=== PATIENT | female | born 1990 | race Caucasian/White ===

== ENCOUNTER 2020-09-13 19:25 | Emergency (ER) | payer OTHER, MEDICAID, SELFPAY ==
[2020-09-13 19:47] VITALS: BP 164/112; PULSE 84; RESP 18; TEMP 36.5; O2SAT 98; BMI 36.9
[2020-09-13 20:31] LABS: Add Manual Diff / Slide Review NO; Basophils Absolute Auto 100 /uL (0-100); Basophils Percent Auto 0.7 % (0-2); Eosinophils Absolute Auto 100 /uL (0-450); Eosinophils Percent Auto 0.4 % (2-4); Hemoglobin 14.9 g/dL (12.0-16.0); Lymphocytes Absolute Auto 2000 /uL (1100-4500); Lymphocytes Percent Auto 16.3 % (25-40); Mean Corpuscular Hemoglobin 27.9 PG (26-34); Mean Corpuscular Volume 84.6 fL (80-100); Monocytes Absolute Auto 400 /uL (0-900); Monocytes Percent Auto 3.3 % (3-14); Neutrophils Absolute Auto 9900 /uL (1500-7000); Neutrophils Percent Auto 79.3 % (50-75); Platelet Count 280 X10^3/uL (150-400); Red Blood Cell Count 5.32 X10^6/uL (4.0-5.2); Red Cell Distribution Width 14.2 % (11.6-14.8); White Blood Cell Count 12.5 X10^3/uL (4.5-11.0)
[2020-09-13 20:39] LABS: Prothrombin Time 11.5 SECONDS (10.1-12.7)
[2020-09-13 20:41] LABS: PTT Partial Thromboplastin Tim 34 SECONDS (26.4-36.2)
[2020-09-13 20:43] LABS: Alanine Aminotransferase 36 IU/L (<35); Albumin 4.6 g/dL (3.5-5.0); Albumin Globulin Ratio 1.1 (1.0-2.8); Alkaline Phosphatase 106 U/L (38-126); Aspartate Aminotransferase 32 IU/L (14-36); BUN Creatinine Ratio 11.8 (6-22); Bilirubin Total 0.5 mg/dL (0.2-1.3); Blood Urea Nitrogen 8 mg/dL (7-17); Calcium 9.7 mg/dL (8.4-10.2); Carbon Dioxide 27 mmol/L (22-32); Chloride 105 mmol/L (98-107); Estimated Glomerular Filt Rate > 60.0 mL/min (>60); Globulin 4.1 g/dL (1.7-4.1); Glucose 110 mg/dL (70-100); HEMOLYSIS 19 (0-50); Lipase 140 U/L (23-300); Sodium 138 mmol/L (137-145); Total Protein 8.7 g/dL (6.3-8.2)
[2020-09-13] MEDS: ONDANSETRON 4 MG/2 ML INJ IV (22:06)
[2020-09-13] MEDS: SODIUM CHLORIDE 0.9% 1,000 ML 1000 ML IV ×2 (22:07→23:24)
[2020-09-13 22:42] VITALS: BP 125/67; PULSE 63; RESP 14; O2SAT 98
[2020-09-13 23:00] VITALS: BP 117/62; PULSE 65; RESP 21; O2SAT 98
--- NOTE | 2020-09-13 23:00 | ED_ITS ---
HPI - General Adult General Chief complaint: Dizziness Stated complaint: LIGHTHEADED VOMITING Time Seen by Provider: 09/13/20 23:00 Source: patient Mode of arrival: Ambulatory Limitations: no limitations History of Present Illness HPI narrative: 30-year-old woman history of 4 days of vomiting and diarrhea. She does have a history of ?chronic stomach stuff? that seems to have responded nicely to Prilosec 20 mg of venlafaxine 125 mg. She is were another the venlafaxine and has a refill available but has not taken it for the past 48 hours. She describes no fevers or chills. There is no blood in either the denise sis or the stool. Moderate abdominal pain secondary to the vomiting with cramping associated with diarrhea. No cough, chest pain, pharyngitis. Related Data Allergies Allergy/AdvReac Type Severity Reaction Status Date / Time naproxen AdvReac Verified 09/13/20 19:52 Review of Systems Review of Systems Narrative: Remainder of review of systems including constitutional, ENT, cardiovascular, respiratory, GI, , musculoskeletal, skin, neurologic and psychiatric systems reviewed and are unremarkable except as noted in HPI. Patient History Social History Smoking Status: Never smoker Smoking Status: Never smoker alcohol intake frequency: a few times a month Substance Use Type: marijuana Exam Narrative Exam Narrative: General: Healthy appearing, in no acute distress. Able to give a complete and coherent history. Well-nourished well-developed HEENT: Moist mucous membranes, normal sclera with reactive pupils, Neck: , supple Respiratory: Lungs are clear to auscultation, no wheezing no rales no rhonchi. Full and symmetrical air movement Cardiac: Regular rate and rhythm no murmurs no bruits Abdomen: Soft nontender good bowel tones, no flank pain Skin: Warm and dry, no rashes Neurologic: Grossly neurologically intact with no obvious asymmetries or abnormalities Extremities: No trauma, well perfused Psych: Cooperative, appropriate insight and affect Initial Vital Signs Initial Vital Signs: Vital Signs Temperature 97.7 F 09/13/20 19:47 Pulse Rate 84 09/13/20 19:47 Respiratory Rate 18 09/13/20 19:47 Blood Pressure 164/112 H 09/13/20 19:47 Pulse Oximetry 98 09/13/20 19:47 Course Orders Ordered: ED Orders 09/13/20 20:25 Complete Blood Count AUTO DIFF Stat Comprehensive Metabolic Panel Stat Lipase Stat Partial Thromboplastin Time Stat Prothrombin Time INR Stat 09/13/20 21:27 COVID19 Stat 09/13/20 21:54 EKG-12 Lead Stat Discontinued Medications Sodium Chloride (Normal Saline 0.9%) 1,000 mls @ 1,000 mls/hr IV BOLUS ONE Stop: 09/13/20 23:04 Last Infusion: 09/13/20 23:15 Dose: 0 mls/hr Documented by: Admin: 09/13/20 22:07 Dose: 1,000 mls/hr Documented by: SHIVA Sodium Chloride (Normal Saline 0.9%) 1,000 mls @ 1,000 mls/hr IV BOLUS ONE Stop: 09/14/20 00:00 Last Infusion: 09/14/20 00:39 Dose: 0 mls/hr Documented by: Admin: 09/13/20 23:24 Dose: 1,000 mls/hr Documented by: NATE Ondansetron HCl (Zofran) 4 mg IV NOW ONE Stop: 09/13/20 22:01 Last Admin: 09/13/20 22:06 Dose: 4 mg Documented by: SHIVA Ondansetron HCl (Zofran Odt Prepack) 1 bottle MISC SEEINSTR ONE Stop: 09/14/20 02:01 Last Admin: 09/14/20 02:02 Dose: 1 bottle Documented by: ISRA Vital Signs Vital signs: Vital Signs - 8 hr 09/13/20 22:42 09/13/20 23:00 09/13/20 23:30 Pulse Rate 63 65 73 Respiratory Rate 14 21 23 Blood Pressure 125/67 117/62 121/75 Pulse Oximetry 98 98 98 09/13/20 23:58 09/14/20 00:00 09/14/20 00:30 Pulse Rate 77 66 78 Respiratory Rate 24 14 22 Blood Pressure 118/76 Pulse Oximetry 98 100 100 09/14/20 01:00 09/14/20 01:01 Pulse Rate 71 83 Respiratory Rate 16 19 Blood Pressure 109/58 L Pulse Oximetry 99 98 Medical Decision Making Medical Records Medical records reviewed: Yes I reviewed the patient's medical records. Lab Data Lab results reviewed: Yes I reviewed the patient's lab results. Result diagrams: 09/13/20 20:25 09/13/20 20:25 Labs: Lab Results 09/13/20 09/13/20 09/13/20 Range/Units 20:25 20:25 20:25 WBC 12.5 H (4.5-11.0) X10^3/uL RBC 5.32 H (4.0-5.2) X10^6/uL Hgb 14.9 (12.0-16.0) g/dL Hct 45.0 (36-46) % MCV 84.6 (80-100) fL MCH 27.9 (26-34) PG MCHC 33.0 (30-36) % RDW 14.2 (11.6-14.8) % Plt Count 280 (150-400) X10^3/uL Neut % (Auto) 79.3 H (50-75) % Lymph % (Auto) 16.3 L (25-40) % [place] % (Auto) 3.3 (3-14) % Eos % (Auto) 0.4 L (2-4) % Baso % (Auto) 0.7 (0-2) % Neut # (Auto) 9900 H (6382-6724) /uL Lymph # (Auto) 2000 (7891-2031) /uL [place] # (Auto) 400 (0-900) /uL Eos # (Auto) 100 (0-450) /uL Baso # (Auto) 100 (0-100) /uL PT 11.5 (10.1-12.7) SECONDS INR 1.0 (0.9-1.3) APTT 34 (26.4-36.2) SECONDS Sodium 138 (137-145) mmol/L Potassium 4.0 (3.4-5.1) mmol/L Chloride 105 (98-107) mmol/L Carbon Dioxide 27 (22-32) mmol/L BUN 8 (7-17) mg/dL Creatinine 0.68 (0.52-1.04) mg/dL Estimated GFR > 60.0 (>60) mL/min BUN/Creatinine Ratio 11.8 (6-22) Glucose 110 H (70-100) mg/dL Calcium 9.7 (8.4-10.2) mg/dL Total Bilirubin 0.5 (0.2-1.3) mg/dL AST 32 (14-36) IU/L ALT 36 H (<35) IU/L Alkaline Phosphatase 106 (38-126) U/L Total Protein 8.7 H (6.3-8.2) g/dL Albumin 4.6 (3.5-5.0) g/dL Globulin 4.1 (1.7-4.1) g/dL Albumin/Globulin Ratio 1.1 (1.0-2.8) Lipase 140 (23-300) U/L COVID-19 PCR (Negative) 09/13/20 Range/Units 21:27 WBC (4.5-11.0) X10^3/uL RBC (4.0-5.2) X10^6/uL Hgb (12.0-16.0) g/dL Hct (36-46) % MCV (80-100) fL MCH (26-34) PG MCHC (30-36) % RDW (11.6-14.8) % Plt Count (150-400) X10^3/uL Neut % (Auto) (50-75) % Lymph % (Auto) (25-40) % [place] % (Auto) (3-14) % Eos % (Auto) (2-4) % Baso % (Auto) (0-2) % Neut # (Auto) (6633-6415) /uL Lymph # (Auto) (9590-1398) /uL [place] # (Auto) (0-900) /uL Eos # (Auto) (0-450) /uL Baso # (Auto) (0-100) /uL PT (10.1-12.7) SECONDS INR (0.9-1.3) APTT (26.4-36.2) SECONDS Sodium (137-145) mmol/L Potassium (3.4-5.1) mmol/L Chloride (98-107) mmol/L Carbon Dioxide (22-32) mmol/L BUN (7-17) mg/dL Creatinine (0.52-1.04) mg/dL Estimated GFR (>60) mL/min BUN/Creatinine Ratio (6-22) Glucose (70-100) mg/dL Calcium (8.4-10.2) mg/dL Total Bilirubin (0.2-1.3) mg/dL AST (14-36) IU/L ALT (<35) IU/L Alkaline Phosphatase (38-126) U/L Total Protein (6.3-8.2) g/dL Albumin (3.5-5.0) g/dL Globulin (1.7-4.1) g/dL Albumin/Globulin Ratio (1.0-2.8) Lipase (23-300) U/L COVID-19 PCR Negative (Negative) Point of Care Testing Test Results Negative Urine Dip Bedside Urine Glucose Negative Bedside Urine Bilirubin - Negative Bedside Urine Ketone +/- 5 Urine Specific [place] 1.030 Bedside Urine Occult Blood - Negative Bedside Urine pH 5.5 Bedside Urine Protein - Negative Bedside Urine Urobilinogen - Negative Bedside Urine Nitrite - Negative Bedside Urine Leukocytes - Negative Esterase Point of care testing: Point of Care Testing Test Results Negative Urine Dip Bedside Urine Glucose Negative Bedside Urine Bilirubin - Negative Bedside Urine Ketone +/- 5 Urine Specific [place] 1.030 Bedside Urine Occult Blood - Negative Bedside Urine pH 5.5 Bedside Urine Protein - Negative Bedside Urine Urobilinogen - Negative Bedside Urine Nitrite - Negative Bedside Urine Leukocytes - Negative Esterase MDM Narrative Medical decision making narrative: 30-year-old woman with 4 days of nausea vomiting diarrhea. Has responded nicely to 2 L of fluid and ondansetron. No evidence of acute bacterial infection or intra-abdominal infection. No UTI. Reassurance is given and patient is felt to be safe for home discharge. Questions are answered. Discharge Plan Departure Patient Disposition: Home Clinical Impression: Nausea vomiting and diarrhea Discharge Date/Time: 09/14/20 02:07 Instructions: Nausea and Vomiting-Adult Activity Restrictions/Additional Instructions: Thank you for coming in today You received 2 liters of fluid and IV Zofran to help with the nausea and treat your dehydration from your persistent vomiting. The remainder of your workup was unremarkable, there is no evidence of significant infection, electrolyte abnormality or kidney problems. I have given you a couple tablets of ondansetron to help with nausea should return. I hope that you are able to get a good night sleep fell back to normal tomorrow. If you have increasing vomiting, increasing diarrhea, blood in either the vomit or stool, developed fevers or have new or persistent symptoms please feel free to return to the emergency department
[2020-09-13 23:30] VITALS: BP 121/75; PULSE 73; RESP 23; O2SAT 98
[2020-09-13 23:56] LABS: COVID19 -Nasal RAPID Negative (Negative)
[2020-09-13 23:58] VITALS: PULSE 77; RESP 24; O2SAT 98
[2020-09-14] VITALS: PULSE 66; RESP 14; O2SAT 100
[2020-09-14 00:30] VITALS: BP 118/76; PULSE 78; RESP 22; O2SAT 100
[2020-09-14 01:00] VITALS: PULSE 71; RESP 16; O2SAT 99
[2020-09-14 01:01] VITALS: BP 109/58; PULSE 83; RESP 19; O2SAT 98
[2020-09-14] MEDS: ONDANSETRON 4 MG ODT PREPACK 1 BOTTLE MISC (02:02)
== END 2020-09-14 02:07 | disposition home or self-care (01) ==
PROVIDERS: Emergency Provider Emergency Medicine
DX: R11.2 Nausea with vomiting, unspecified (principal); R19.7 Diarrhea, unspecified; R42 Dizziness and giddiness; R10.9 Unspecified abdominal pain
CPT/HCPCS: 36415; 80053; 81003; 81025; 83690; 85025; 85610; 85730; 87635; 93005; 96361; 96374; 99284; J2405

== ENCOUNTER 2020-11-12 00:18 | Emergency (ER) | payer OTHER, MEDICAID, SELFPAY ==
[2020-11-12 00:25] VITALS: BP 110/71; PULSE 60; RESP 18; TEMP 36.4; O2SAT 99; BMI 38.4
--- NOTE | 2020-11-12 00:31 | ED.NAVMDI ---
HPI - Nausea/Vomiting/Diarrhea General Chief complaint: Nausea/Vomiting/Diarrhea Stated complaint: VOMITING SINCE SIX P.M. Time Seen by Provider: 11/12/20 00:27 Source: patient Mode of arrival: Ambulatory Limitations: no limitations History of Present Illness HPI Narrative: 30-year-old female here for evaluation of nausea and vomiting for the past several hours. No fevers. States she tried to take Dramamine at home which she has taken in the past or nausea but is not working. No diarrhea. Has abdominal pain but is associated with vomiting. No chest pain. Not vomiting any blood. No urinary symptoms. Related Data Allergies Allergy/AdvReac Type Severity Reaction Status Date / Time naproxen AdvReac Verified 09/13/20 19:52 Review of Systems Constitutional Constitutional: Denies fever(s) Cardiovascular Cardiovascular: Denies chest pain and Denies dyspnea Respiratory Respiratory: Denies dyspnea Gastrointestinal Gastrointestinal: Reports abdominal pain, Denies change in bowel habits, Reports nausea and Reports vomiting Genitourinary Genitourinary: Denies dysuria Genitourinary: Denies dysuria Musculoskeletal Musculoskeletal: Denies arthralgias and Denies myalgias Integumentary/Breasts Skin/Breast: Denies rash Neurologic Neurologic: Denies behavioral changes Psychiatric Psychiatric: Denies behavioral changes Hematologic/Lymphatic Hematologic/Lymphatic: Denies easy bleeding and Denies easy bruising Patient History Medical History Nausea & vomiting Social History Smoking Status: Never smoker Smoking Status: Never smoker alcohol intake frequency: a few times a month Substance Use Type: marijuana Exam Initial Vital Signs Initial Vital Signs: Vital Signs Temperature 97.5 F L 11/12/20 00:25 Pulse Rate 60 11/12/20 00:25 Respiratory Rate 18 11/12/20 00:25 Blood Pressure 110/71 11/12/20 00:25 Pulse Oximetry 99 11/12/20 00:25 Const General: cooperative and comfortable Limitations: mental status not altered HENMT Head: normal to inspection and normocephalic Resp Effort & Inspection: normal respiratory effort Cardio Rate: regular rate Skin Lesions: no lesions Rashes: no rashes Neuro General: patient alert and patient awake Extrem General: capillary refill normal Psych Appearance: grossly normal and well kempt Course Orders Ordered: Discontinued Medications Sodium Chloride (Normal Saline 0.9%) 1,000 mls @ 1,000 mls/hr IV BOLUS ONE Stop: 11/12/20 01:27 Last Admin: 11/12/20 00:35 Dose: 1,000 mls/hr Documented by: ANCA Ondansetron HCl (Ondansetron 4 Mg/2 Ml Inj) 4 mg IV NOW ONE Stop: 11/12/20 00:29 Last Admin: 11/12/20 00:37 Dose: 4 mg Documented by: ANCA Ondansetron HCl (Ondansetron 4 Mg Odt Prepack) 1 bottle MISC SEEINSTR ONE Stop: 11/12/20 01:34 Pantoprazole Sodium (Pantoprazole 40 Mg Vial) 40 mg IV NOW ONE Stop: 11/12/20 00:29 Last Admin: 11/12/20 00:36 Dose: 40 mg Documented by: ANCA Vital Signs Vital signs: Vital Signs - 8 hr 11/12/20 00:25 Temperature 97.5 F L Pulse Rate 60 Respiratory Rate 18 Blood Pressure 110/71 Pulse Oximetry 99 MDM - Nausea/Vomiting/Diarrhea MDM Narrative Medical decision making narrative: Patient reported resolution of symptoms after 1 dose of Zofran and fluids. Has a benign exam. I feel we can hold on labs or CT scans for now. Will send home with a prepack of Zofran. She was given return precautions and follow-up instructions. She expressed understanding and agreement. Discharge Plan Departure Patient Disposition: Home Clinical Impression: Nausea and vomiting Instructions: DI for Nausea -- Adult, DI for Vomiting -- Adult Activity Restrictions/Additional Instructions: Be sure to increase your fluid intake by drinking small amounts of fluid over longer periods of time for the next couple days. Also recommend eating a bland diet for the next couple days. Contact your primary provider for follow-up. Return to the emergency department for any new or worsening symptoms
[2020-11-12] MEDS: SODIUM CHLORIDE 0.9% 1,000 ML 1000 ML IV (00:35)
[2020-11-12] MEDS: PANTOPRAZOLE 40 MG VIAL IV (00:36)
[2020-11-12] MEDS: ONDANSETRON 4 MG/2 ML INJ IV (00:37)
[2020-11-12] MEDS: ONDANSETRON 4 MG ODT PREPACK 1 BOTTLE MISC (01:44)
[2020-11-12 01:56] VITALS: BP 113/55; PULSE 79; RESP 17; TEMP 36.8; O2SAT 99
== END 2020-11-12 01:58 | disposition home or self-care (01) ==
PROVIDERS: Emergency Provider Emergency Medicine
DX: R11.2 Nausea with vomiting, unspecified (principal); R10.9 Unspecified abdominal pain
CPT/HCPCS: 36415; 96361; 96374; 96375; 99281; 99284; C9113; J2405

== ENCOUNTER 2021-05-20 14:06 | Emergency (ER) | payer OTHER, MEDICAID, SELFPAY ==
[2021-05-20 14:20] VITALS: BP 138/89; PULSE 101; RESP 20; TEMP 37.3; O2SAT 98
== END 2021-05-20 18:31 | disposition left against medical advice (07) ==
PROVIDERS: Emergency Provider Emergency Medicine; PCP Nurse Practitioner
DX: R10.32 Left lower quadrant pain (principal)
CPT/HCPCS: 81003; 81025; 99282

== ENCOUNTER → 2021-07-01 09:58 | Outpatient (CLI) | payer OTHER, MEDICAID, SELFPAY ==
[2021-07-01 10:33] LABS: COVID19 -Nasal RAPID Negative (Negative)
== END ==
PROVIDERS: PCP Nurse Practitioner; Visit Provider Physician Assistant
DX: Z20.822 Contact with and (suspected) exposure to COVID-19 (principal); R52 Pain, unspecified; J02.9 Acute pharyngitis, unspecified
CPT/HCPCS: 87635